=== PATIENT | male | born 1970 | race African-American/Black ===

== ENCOUNTER 2019-12-11 04:15 | Emergency (ER) | payer SELFPAY ==
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
== END 2019-12-11 06:28 ==
LOC: ED 04:15
DX: I46.9 Cardiac arrest, cause unspecified (principal); I10 Essential (primary) hypertension; F17.200 Nicotine dependence, unspecified, uncomplicated; Z79.2 Long term (current) use of antibiotics; Z79.899 Other long term (current) drug therapy; Z88.8 Allergy status to other drugs, medicaments and biological substances